=== PATIENT | female | born 1970 | race Two or more races ===

== ENCOUNTER 2022-12-30 20:56 | Emergency (ER) | payer MEDICAID, OTHER ==
[~2022-12-30] VITALS: Ht 157.5 cm; Wt 67.5 kg
[2022-12-30] MEDS ORDERED: LABETALOL HCL 5 MG/ML 20 ML VIAL IVP PRN ×2 (21:00)
[2022-12-30 21:26] VITALS: TEMP 98.6
[2022-12-30] MEDS ORDERED: LORazepam 2 MG/ML VIAL IVP ONE (21:30)
[2022-12-30 21:43] LABS: BASOPHILS % (AUTO) 0.3 % (0.0-2.0); EOSINOPHILS % (AUTO) 4.3 % (1.0-6.0); HEMATOCRIT 38.6 % (36-46); HEMOGLOBIN 12.9 g/dL (12.0-16.0); LYMPHOCYTES # (AUTO) 2.2 K/uL (1.0-4.8); LYMPHOCYTES % (AUTO) 42.9 % (22.0-44.0); MEAN CORPUSCULAR HEMOGLOBIN 32.6 pg (26.0-34.0); MEAN CORPUSCULAR HGB CONC 33.4 G/dL (31.0-37.0); MEAN CORPUSCULAR VOLUME 98 fL (80-100); MONOCYTES # (AUTO) 0.4 K/uL (0.1-1.0); MONOCYTES % (AUTO) 8.2 % (2.0-9.0); NEUTROPHILS # (AUTO) 2.3 K/uL (1.8-7.7); NEUTROPHILS % (AUTO) 44.3 % (40.0-70.0); PLATELET COUNT (AUTO) 240 K/uL (150-450); RED BLOOD CELL COUNT(AUTO) 3.95 MIL/uL (4.00-5.20); RED CELL DISTRIBUTION WIDTH 13.6 % (11.5-14.5); WHITE BLOOD COUNT (AUTO) 5.2 K/uL (4.5-11.0)
[2022-12-30 21:46] LABS: ANION GAP 8 mmol/L (8-16); CALCIUM, TOTAL 9.4 mg/dL (8.8-10.5); CARBON DIOXIDE 29 mmol/L (22-29); CHLORIDE 102 mmol/L (98-107); GLOMERULAR FILTR. RATE CALC > 60 mL/min (>60); GLUCOSE,RANDOM 106 mg/dL (70-110); POTASSIUM 3.5 mmol/L (3.5-5.1); SODIUM SERUM 139 mmol/L (136-145); UREA NITROGEN, BLOOD 15 mg/dL (7-18)
[2022-12-30 21:50] LABS: PROTHROMBIN TIME 10.2 SEC (9.4-11.6)
[2022-12-30 21:53] LABS: ALANINE AMINOTRANSFERASE 37 U/L (12-78); ALBUMIN 3.6 g/dL (3.4-5.0); ALKALINE PHOSPHATASE 97 U/L (46-116); ASPARTATE AMINOTRANSFERASE 23 U/L (15-37); BILIRUBIN,TOTAL 0.5 mg/dL (0.1-1.0); TOTAL PROTEIN, SERUM 7.4 g/dL (6.4-8.2); TROPONIN I-HIGH SENSITIVITY 4 ng/L (<51)
[2022-12-30 22:09] LABS: CHOL/HDL RATIO 2.4 (3.9-5.7)
[2022-12-30] MEDS ORDERED: LORA-1000 PO (22:19)
[2022-12-30 22:27] VITALS: BP 127/62; PULSE 59; RESP 20
[2022-12-30] MEDS ORDERED: LORazepam 1 MG TABLET PO ONE (22:30)
[2022-12-30] MEDS ORDERED: SODIUM CHLORIDE 0.9% 100 ML ONE (23:06)
[2022-12-30] MEDS ORDERED: IOHEXOL 350 MG/ML 100 ML VIAL ONE (23:06)
== END 2022-12-31 00:30 | disposition home or self-care (01) ==
LOC: EMS 20:57
DX: F41.0 Panic disorder [episodic paroxysmal anxiety] (principal)
CPT/HCPCS: 99291; 70496; 96374; 71045; 80061; 80053; 84484; 85025; 85610; 85730; 86850; 86900; 86901; 36415; 70498; 82948; 93005; 70450; J2060; Q9967; J7050

== ENCOUNTER 2025-01-22 16:03 | Emergency (ER) | payer OTHER ==
[~2025-01-22] VITALS: Ht 165.1 cm; Wt 68.2 kg
[~2025-01-22 16:03] MED LIST: LORA1TAB25 PO
[2025-01-22 16:09] VITALS: TEMP 97.9
[2025-01-22] MEDS ORDERED: IBUP-45 PO (16:09)
[2025-01-22] MEDS: ACETAMINOPHEN 500 MG TABLET PO ONE (17:26)
[2025-01-22] MEDS: LIDOCAINE 5% TRANSDERMAL PATCH TD ONE (17:29)
[2025-01-22] MEDS ORDERED: LIDO-57 TP (18:51)
[2025-01-22] MEDS ORDERED: NAPR-1193 PO (18:51)
[2025-01-22] MEDS ORDERED: ACET-2247 PO (18:51)
[2025-01-22] MEDS: KETOROLAC TROMETHAMINE 30 MG/ML VIAL IM ONE (18:54)
[2025-01-22 19:20] VITALS: BP 127/77; PULSE 72; RESP 18; O2SAT 99
== END 2025-01-22 19:59 | disposition home or self-care (01) ==
LOC: EMS 16:03
DX: S76.012A Strain of muscle, fascia and tendon of left hip, initial encounter (principal); F41.9 Anxiety disorder, unspecified; Z79.899 Other long term (current) drug therapy; X58.XXXA Exposure to other specified factors, initial encounter; Y93.89 Activity, other specified; Y92.89 Other specified places as the place of occurrence of the external cause; Y99.8 Other external cause status
CPT/HCPCS: 99284; 96372; J1885